=== PATIENT | female | born 1965 | race Caucasian/White ===

== ENCOUNTER → 2021-03-15 | Outpatient (CLI) | payer BC ==
[2021-03-15 11:09] LABS: RED BLOOD COUNT 5.05 M/UL (4.00-5.10); WHITE BLOOD COUNT 7.6 K/UL (4.5-11.0)
[2021-03-15 11:49] LABS: BUN/CREATININE RATIO 15 (0-10)
== END ==
LOC: LAB 09:14
PROVIDERS: Nurse Practitioner Psychiatric/Mental Health
DX: E55.9 Vitamin D deficiency, unspecified (principal); E66.9 Obesity, unspecified; E03.9 Hypothyroidism, unspecified; F32.9 Major depressive disorder, single episode, unspecified; R73.01 Impaired fasting glucose
CPT/HCPCS: 36415; 80053; 80061; 83036; 84439; 84443; 85025

== ENCOUNTER 2021-05-20 18:17 | Emergency (ER) | payer BC ==
[2021-05-20] MEDS ORDERED: ONDANSETRON ODT4 MG SL (20:10)
== END 2021-05-20 21:07 | disposition home or self-care (01) ==
LOC: ER1 18:17
DX: Z23 Encounter for immunization (principal); U07.1 COVID-19; E03.9 Hypothyroidism, unspecified; Z90.710 Acquired absence of both cervix and uterus; F17.200 Nicotine dependence, unspecified, uncomplicated
CPT/HCPCS: 99283; M0243